=== PATIENT | male | born 1980 | race Hispanic/Latino ===

== ENCOUNTER 2016-12-15 00:57 | Emergency (ER) | payer OTHER ==
[2016-12-15 01:09] VITALS: BP 143/89; PULSE 119; RESP 22; TEMP 100; O2SAT 98
[2016-12-15] MEDS ORDERED: Albuterol-Ipratrop 3 mg / 0.5 (3 ml) UD ONE ×2 (01:20→01:25)
[2016-12-15] MEDS ORDERED: Albuterol-Ipratrop 3 mg / 0.5 (3 ml) UD INH STA (01:22)
--- NOTE | 2016-12-15 01:27 | ED PDOC ---
HPI: Asthma <Sandoval Alonso Harsh - Last Filed: 12/15/16 02:03> History Per: Patient History/Exam Limitations: no limitations Onset/Duration Of Symptoms: Hrs Current Symptoms Are (Timing): Still Present Associated Symptoms: Dyspnea, Cough, Chest Pain. denies: Sputum Production, Hemoptysis, Fever Precipitating Factors: Weather Change, Allergies Severity: Moderate Additional History Per: Family Additional Complaint(s): CC: shortness of breath/chest pain HPI: The patient is a 36 y/o man w/ pmh of mild intermittent asthma presents to the ED with shortness of breath and chest pain. The patient reports that his allergies have been bothering him this past week and last night he had two awakenings despite using CPAP machine. The patient used his ventolin x2 with mild relief. The patient went to urgent care facility where he was given duoneb solution, inhaled steroid, and medrol-pack; however, he became more dyspneic and thus went to ED. The patient reports that he has not had an exacerbation for over 3 years and his last hospitalization for asthma was when he was in his 20s. The patient reports non-productive cough with mild headache and sore throat. The chest pain occurs only with cough. The patient denies abdominal pain, nausea, vomiting, diarrhea, and dysuria. The patient uses only ventolin prn for asthma. The patient denies smoking and illicit drug use but drinks 2-3 glasses of whiskey every other night. The patient has a right foot stress fracture from 5 weeks ago after slipping [place]. Allergies: NKDA PMH: mild intermittent asthma PSH: none Fam: father has asthma SOC: denies smoking and drugs, drinks 2-3 glasses of whiskey every other night ROS: negative for 10 systems except for stated in HPI - Asthma History Medication Use: PRN Rescue Medications: Short-acting Agonists Control Medications: None <Alex Bennett - Last Filed: 12/15/16 05:04> Time Seen by Provider: 12/15/16 01:23 Chief Complaint (Nursing): Respiratory Distress Supervising Attending Note - Supervising Attending Note The Documented history was done by the: Physician Rn On Site, Attending Physician The documented physical exam was done by the: Physician Rn On Site, Attending Physician The documented procedures were done by the: Physician Rn On Site, Attending Physician - Attestation: I have personally seen and examined this patient.: Yes I have fully participated in the care of the patient.: Yes I have reviewed all pertinent clinical information: Yes <GavinSgel House - Last Filed: 12/15/16 02:03> Past Medical History Vital Signs: Last Vital Signs Temp 100 F H 12/15/16 01:06 Pulse 119 H 12/15/16 01:06 Resp 12/15/16 01:06 BP 143/89 12/15/16 01:06 Pulse Ox 98 12/15/16 01:47 <GavinSgel House - Last Filed: 12/15/16 02:03> Vital Signs: Last Vital Signs Temp 100 F H 12/15/16 01:06 Pulse 119 H 12/15/16 01:06 Resp 12/15/16 01:06 BP 143/89 12/15/16 01:06 Pulse Ox 98 12/15/16 01:06 - Family History Family History: States: Unknown Family Hx <Alex Bennett - Last Filed: 12/15/16 05:04> - Home Medications Home Medications: Ambulatory Orders Medication Instructions Recorded Azithromycin [Zithromax] 500 mg PO DAILY #5 tablet 12/15/16 - Allergies Allergies/Adverse Reactions: Allergies Allergy/AdvReac Type Severity Reaction Status Date / Time No Known Allergies Allergy Verified 12/15/16 01:06 Review of Systems ROS Statement: Except As Marked, All Systems Reviewed And Found Negative Constitutional: Positive for: Weakness. Negative for: Sweats Eyes: Negative for: Pain ENT: Positive for: Throat Pain Cardiovascular: Positive for: Palpitations Respiratory: Positive for: Cough, Shortness of Breath, Pleuritic Pain, Wheezing. Negative for: Hemoptysis, Sputum Gastrointestinal: Negative for: Nausea, Vomiting, Abdominal Pain, Diarrhea Genitourinary Male: Negative for: Dysuria Musculoskeletal: Positive for: Back Pain. Negative for: Neck Pain Skin: Negative for: Rash Neurological: Positive for: Headache. Negative for: Change in Speech <Alex Bennett - Last Filed: 12/15/16 05:04> Physical Exam - Physical Exam Appears: Positive for: No Acute Distress Head Exam: Positive for: ATRAUMATIC, NORMOCEPHALIC Skin: Positive for: Normal Color, Warm, Dry Eye Exam: Positive for: EOMI, PERRL ENT: Positive for: Pharyngeal Erythema. Negative for: Tonsillar Exudate Neck: Positive for: Normal, Painless ROM, Supple Cardiovascular/Chest: Positive for: Regular Rate, Rhythm, Chest Non Tender, Tachycardia. Negative for: Edema, Bradycardia Respiratory: Positive for: Wheezing (expiratory wheeze mostly upper lobes bilaterally). Negative for: Accessory Muscle Use, Stridor, Respiratory Distress (speaks in full sentences) Pulses-Carotid (L): 2+ Pulses-Carotid (R): 2+ Pulses-Radial (L): 2+ Pulses-Radial (R): 2+ Gastrointestinal/Abdominal: Positive for: Normal Exam, Bowel Sounds, Soft. Negative for: Tenderness, Distended Back: Negative for: Vertebral Tenderness Extremity: Negative for: Tenderness, Pedal Edema, Calf Tenderness Neurologic/Psych: Positive for: Alert, Oriented <Alex Bennett Last Filed: 12/15/16 05:04> - ECG O2 Sat by Pulse Oximetry: 98 <Alex Bennett Last Filed: 12/15/16 05:04> Medical Decision Making Medical Decision Making: The patient is a 36 y/o man w/ pmh of mild intermittent asthma presents to the ED with shortness of breath and chest pain 01:20 EKG: sinus tachycardia, regular rhythm, no ST elevation/depression, NC segments and QRS WNL, normal axis CXR duonebs x3 inh solumedrol 125 mg IVP peak flow re-evaluate 03:00 CXR: right lower lobe atelectasis vs right lower lobe infiltrate wheeze resolved Peak flow improved from 150 to 420 discharge to home with azithromycin 500 mg PO for 5 days <Alex Bennett Last Filed: 12/15/16 05:04> Disposition <Sandoval Alonso Last Filed: 12/15/16 02:03> - Patient ED Disposition Is Patient to be Admitted: No Discussed With : Sandoval Alonso Doctor Will See Patient In The: Office Counseled Patient/Family Regarding: Studies Performed, Diagnosis, Need For Followup, Rx Given - Disposition Disposition: Routine/Home Disposition Time: 03:04 - POA Present On Arrival: None <Alex Bennett Last Filed: 12/15/16 05:04> - Clinical Impression Clinical Impression: Asthma exacerbation - Disposition Referrals: [facility] [Outside] Condition: IMPROVED Additional Instructions: please follow up with PMD in 3-5 days if shortness of breath returns worse, chest pain worsens, please return to ED Prescriptions: Azithromycin [Zithromax] 500 mg PO DAILY #5 tablet Instructions: Asthma (DC), Asthma (GEN), Wheezing (ED) Print Language: KOREAN
--- NOTE | 2016-12-15 10:01 | CARD ---
APPROVED REPORT EKG Measurement Heart [id number] <Conclusion> Sinus tachycardia Possible Left atrial enlargement Borderline ECG
--- NOTE | 2016-12-15 10:06 | RAD ---
HISTORY: dyspnea COMPARISON: No prior. TECHNIQUE: Chest PA and lateral FINDINGS: LUNGS: No active pulmonary disease. PLEURA: No significant pleural effusion identified. No pneumothorax apparent. CARDIOVASCULAR: Normal. OSSEOUS STRUCTURES: No significant abnormalities. VISUALIZED UPPER ABDOMEN: Normal. OTHER FINDINGS: None. IMPRESSION: No active disease.
== END 2016-12-15 04:35 | disposition home or self-care (01) ==
LOC: H.ER 00:57
DX: J45.901 Unspecified asthma with (acute) exacerbation (principal); R07.9 Chest pain, unspecified; R06.00 Dyspnea, unspecified